=== PATIENT | male | born 1940 | race Caucasian/White ===

== ENCOUNTER 2016-12-02 11:09 | Emergency (ER) | payer MEDICARE, MEDICAID ==
[~2016-12-02] VITALS: Ht 172.7 cm; Wt 79.4 kg
[~2016-12-02 11:09] MED LIST: ASPI81TA2 PO; ATOR40TA PO; CARV12.5 PO; CLOP75TA2 PO; ESCI10TA PO; ESOM40CA PO; EZET10TA PO; MEMA10TA PO; SOLI10TA PO; TELM1TAB PO; TRAM50TA2 PO
[2016-12-02 11:24] VITALS: BP 133/59
== END 2016-12-02 12:51 | disposition home or self-care (01) ==
LOC: ER 11:11
DX: S93.601A Unspecified sprain of right foot, initial encounter (principal); I10 Essential (primary) hypertension; X58.XXXA Exposure to other specified factors, initial encounter; Y92.89 Other specified places as the place of occurrence of the external cause; Y93.89 Activity, other specified; Y99.8 Other external cause status
CPT/HCPCS: 29125; 73610; 99284; A4606; Z7610

== ENCOUNTER 2020-08-30 11:49 | Emergency (ER) | payer MEDICARE, OTHER ==
[~2020-08-30] VITALS: Ht 170.2 cm; Wt 79.4 kg
[~2020-08-30 11:49] MED LIST changes: +ASPI-1169 PO; -ASPI81TA2 PO; +CLOP75TA15 PO; -CLOP75TA2 PO; -EZET10TA PO; +EZET10TA6 PO; -SOLI10TA PO; +SOLI10TA2 PO
--- NOTE | 2020-08-30 12:00 | NUR ---
aarti, c/o RLQ pain x 4 days, 5/10 pain scale. vs checked. iv access started. blood draw done. sent to lab. seen by
[2020-08-30 12:36] LABS: BASOPHILS % (AUTO) 1.1 % (0.0-2.0); EOSINOPHILS % (AUTO) 1.3 % (0.0-6.0); HEMATOCRIT 39 % (39-51); LYMPHOCYTES # (AUTO) 1.3 /CMM (0.8-4.8); LYMPHOCYTES % (AUTO) 30.1 % (20.0-44.0); MEAN CORPUSCULAR HGB CONC 33 g/dl (31.0-36.0); MEAN CORPUSCULAR VOLUME 97 fL (80-96); MONOCYTES # (AUTO) 0.4 /CMM (0.1-1.30); MONOCYTES % (AUTO) 9.8 % (2.0-12.0); NEUTROPHILS # (AUTO) 2.5 /CMM (1.8-8.9); NEUTROPHILS % (AUTO) 57.7 % (43.0-81.0); PLATELET COUNT (AUTO) 184 /CMM (150-450); RED BLOOD CELL COUNT(AUTO) 4.06 MIL/uL (4.5-6.0); WHITE BLOOD COUNT (AUTO) 4.3 K/uL (4.3-11.0)
--- NOTE | 2020-08-30 12:53 | NUR ---
urine collected sent to lab
[2020-08-30] MEDS ORDERED: IV NS 0.9% 250 ML IV ONE (13:00)
[2020-08-30] MEDS ORDERED: CT SWABBABLE VALVE TRANS SET 1 EA INFUS.SET MC ONE (13:00)
[2020-08-30] MEDS ORDERED: IOHEXOL-300 100 ML VIAL IV ONE (13:00)
[2020-08-30 13:08] LABS: CREATININE 0.9 mg/dL (0.6-1.3); POTASSIUM 4.3 mmol/L (3.5-5.1)
[2020-08-30 13:16] LABS: ALBUMIN 3.4 g/dL (3.4-5.0); BILIRUBIN,DIRECT 0.2 mg/dL (0.0-0.2); BILIRUBIN,TOTAL 0.5 mg/dL (0.2-1.0); TOTAL PROTEIN, SERUM 6.5 g/dL (6.4-8.2)
[2020-08-30 13:21] LABS: BILIRUBIN,URINE NEGATIVE (NEGATIVE); BLOOD, URINE NEGATIVE Ery/uL (NEGATIVE); COLOR,URINE YELLOW (YELLOW); LEUKOCYTE ESTERASE ,URINE NEGATIVE (NEGATIVE); NITRITE, URINE NEGATIVE (NEGATIVE); PH,URINE 6.5 (5.0-8.0); PROTEIN,URINE NEGATIVE (NEGATIVE); UGLUCOSE NEGATIVE (NEGATIVE); UROBILINOGEN,URINE 0.2 EU/dL (0.2)
[2020-08-30 15:28] VITALS: BP 156/74
--- NOTE | 2020-08-30 15:28 | NUR ---
Patient discharged to home in stable condition. Written and verbal after care instructions given. Patient verbalizes understanding of instruction. IV removed. Catheter intact and site benign. Pressure and 4x4 applied to site. No bleeding noted.
== END 2020-08-30 15:29 | disposition home or self-care (01) ==
LOC: ER 11:52
DX: N40.0 Benign prostatic hyperplasia without lower urinary tract symptoms (principal); K40.20 Bilateral inguinal hernia, without obstruction or gangrene, not specified as recurrent; I10 Essential (primary) hypertension; Z86.73 Personal history of transient ischemic attack (TIA), and cerebral infarction without residual deficits; Z95.5 Presence of coronary angioplasty implant and graft; Z98.890 Other specified postprocedural states; Z79.899 Other long term (current) drug therapy
CPT/HCPCS: 36415; 74177; 80048; 80076; 81003; 83690; 85025; 99285; J7050; Q9967